=== PATIENT | male | born 1950 | race Caucasian/White ===

== ENCOUNTER 2019-03-10 22:16 | Inpatient (IN) ==
[2019-03-11] MEDS ORDERED: ONDANSETRON 4 MG/2 ML VIAL IV PRN (01:26)
[2019-03-11] MEDS ORDERED: cefTRIAXone 1,000 MG in SYRINGE 1 EACH IV SCH (02:30)
[2019-03-11] MEDS ORDERED: KETOROLAC 30 MG/1 ML VIAL IM ONE (02:30)
[2019-03-11 02:38] LABS: Basophils % 0.3 % (0.0-0.8); Hematocrit 41.5 VOL% (42.0-52.0); Hemoglobin 13.6 GM/DL (14.0-18.0); Immature Granulocytes % 0.7 %; Immature Granulocytes Absolute 0.08 #; Lymphocytes % 8.7 % (21.2-54.2); Mean Corpuscular HGB Conc 32.8 GM/DL (32-36); Mean Corpuscular Volume 87.2 FL (87-102); Mean Platelet Volume 12.3 FL (9.6-12.0); Monocytes % 6.8 % (1.7-12.7); Neutrophils % 83.5 % (38.7-73.9); Platelet Count 128 T/CUMM (130-400); Red Blood Count 4.76 MC/CUMM (3.8-5.5); Red Cell Distribution Width 13.7 % (9.3-17.3)
[2019-03-11 02:55] LABS: Albumin 3.2 G/DL (3.4-5.0); Bilirubin,Total 2.3 MG/DL (0.2-1.0); Calcium 8.2 MG/DL (8.5-10.1); Osmolality,Calculated 283.3 MOS/KG (273-304); Total Protein 6.9 G/DL (6.4-8.3)
[2019-03-11] MEDS ORDERED: GENTAMICIN INJ 80 MG in PREMIX 1 EACH IV ONE (03:00)
[2019-03-11] MEDS: ACETAMINOPHEN 325 MG TABLET PO PRN ×2 (03:15→08:15)
[2019-03-11] MEDS: SODIUM CHLORIDE 0.9% 1,000 ML IV SCH ×3 (03:17→17:43)
[2019-03-11] MEDS: MORPHINE 4 MG/1 ML VIAL IV PRN ×3 (03:45→17:41)
[2019-03-11 05:27] LABS: Apearance,Urine Slightly Hazy (Clear); Bilirubin,Urine Negative (Negative); Blood, Urine Large mg/dL (Negative); Glucose,Urine (UA) Negative (Negative); Ketones,Urine 5 mg/dL (Negative); Mucus,Urine Occasional /LPF (Occasional); Nitrite,Urine Negative (Negative); Protein,Urine 100 MG/DL; RBC,Urine 762 /HPF (0-4); Squamous Epithelial Cell,Urine Occasional /HPF (0-10); Urine Color Yellow (Yellow); Urine Specific Gravity 1.014 (1.001-1.035); Urine Urobilinogen < 2.0 EU/DL (0.2-1.0); WBC,Urine 24 /HPF (0-6)
[2019-03-11] MEDS ORDERED: cefTRIAXone 1,000 MG in SYRINGE 1 EACH IV ONE (06:15)
[2019-03-11] MEDS: ALBUTEROL/IPRATROPIUM 3 ML NEB RESP TX SCH ×3 (07:11→19:49)
[2019-03-11] MEDS: CEFEPIME 1,000 MG in SODIUM CHLORIDE 0.9% 100 ML IV SCH ×2 (09:26→17:42)
[2019-03-11] MEDS: KETOROLAC 15 MG/1 ML VIAL IV PRN ×2 (12:10→18:42)
[2019-03-11] MEDS: ACETAMINOPHEN 325 MG TABLET PO SCH ×3 (12:11→22:52)
[2019-03-12] MEDS: ALBUTEROL/IPRATROPIUM 3 ML NEB RESP TX SCH ×4 (00:11→19:40)
[2019-03-12] MEDS: KETOROLAC 15 MG/1 ML VIAL IV PRN ×3 (01:25→15:45)
[2019-03-12] MEDS: SODIUM CHLORIDE 0.9% 1,000 ML IV SCH ×2 (02:31→19:27)
[2019-03-12] MEDS: CEFEPIME 1,000 MG in SODIUM CHLORIDE 0.9% 100 ML IV SCH ×2 (02:31→09:44)
[2019-03-12] MEDS: MORPHINE 4 MG/1 ML VIAL IV PRN (06:47)
[2019-03-12] MEDS: ACETAMINOPHEN 325 MG TABLET PO SCH ×4 (07:10→22:32)
[2019-03-12 08:09] LABS: Basophils % 0.4 % (0.0-0.8); Eosinophils % 0.4 % (0.00-10.9); Hematocrit 39.7 VOL% (42.0-52.0); Hemoglobin 13.2 GM/DL (14.0-18.0); Immature Granulocytes % 0.9 %; Immature Granulocytes Absolute 0.06 #; Lymphocytes # 0.8 10*3/uL (1.4-4.0); Lymphocytes % 11.3 % (21.2-54.2); Mean Corpuscular HGB Conc 33.2 GM/DL (32-36); Mean Corpuscular Volume 86.7 FL (87-102); Mean Platelet Volume 12.5 FL (9.6-12.0); Monocytes % 9.5 % (1.7-12.7); Neutrophils % 77.5 % (38.7-73.9); Red Blood Count 4.58 MC/CUMM (3.8-5.5); Red Cell Distribution Width 13.9 % (9.3-17.3); White Blood Count 6.8 T/CUMM (4-12)
[2019-03-12 08:15] LABS: Platelet Count 95 T/CUMM (130-400)
[2019-03-12 08:27] LABS: Calcium 8.2 MG/DL (8.5-10.1); Osmolality,Calculated 288.1 MOS/KG (273-304)
[2019-03-12 08:39] LABS: Band Neutrophils 1 % (0-10); Hypochromasia Slight; Lymphocytes 12 % (20-55); Ovalocytes Slight; Platelet Estimate Decreased; Segmented Neutrophils 78 % (50-85); Total Cells Counted 100
[2019-03-12] MEDS ORDERED: cefTRIAXone 2,000 MG in SYRINGE 1 EACH IV SCH (09:00)
[2019-03-12] MEDS ORDERED: MAGNESIUM SULF RIDER 2 GM in PREMIX 1 EACH IV ONE (09:00)
[2019-03-12] MEDS ORDERED: POTASSIUM CHLORIDE 20 MEQ TABLET PO ONE (09:00)
[2019-03-12] MEDS: MEROPENEM 500 MG in SODIUM CHLORIDE 0.9% 100 ML IV SCH ×2 (12:02→19:20)
[2019-03-12] MEDS: IBUPROFEN 800 MG TABLET PO PRN (20:54)
[2019-03-12] MEDS: NICOTINE 21 MG/24 HR PATCH TRANSDERM PRN (20:54)
[2019-03-13] MEDS: MEROPENEM 500 MG in SODIUM CHLORIDE 0.9% 100 ML IV SCH ×2 (03:30→10:15)
[2019-03-13] MEDS: ACETAMINOPHEN 325 MG TABLET PO SCH ×4 (04:56→23:55)
[2019-03-13] MEDS: ALBUTEROL/IPRATROPIUM 3 ML NEB RESP TX SCH ×7 (05:20→23:26)
[2019-03-13] MEDS: ATORVASTATIN 10 MG TABLET PO SCH (08:40)
[2019-03-13] MEDS: hydroCHLOROthiazide 25 MG TABLET PO SCH (08:41)
[2019-03-13] MEDS: ISOSORBIDE MONONITRATE 30 MG TABLET PO SCH (08:41)
[2019-03-13] MEDS: amLODIPine 10 MG TABLET PO SCH (08:41)
[2019-03-13] MEDS: SODIUM CHLORIDE 0.9% 1,000 ML IV SCH (09:20)
[2019-03-13] MEDS: IBUPROFEN 800 MG TABLET PO PRN (16:09)
[2019-03-13] MEDS: MEROPENEM 1,000 MG in SODIUM CHLORIDE 0.9% 100 ML IV SCH (20:16)
[2019-03-13] MEDS: NICOTINE 21 MG/24 HR PATCH TRANSDERM PRN (20:25)
[2019-03-14] MEDS: ALBUTEROL/IPRATROPIUM 3 ML NEB RESP TX SCH ×6 (02:17→22:40)
[2019-03-14] MEDS: MEROPENEM 1,000 MG in SODIUM CHLORIDE 0.9% 100 ML IV SCH ×3 (04:11→20:36)
[2019-03-14 06:09] LABS: Basophils % 0.3 % (0.0-0.8); Eosinophils # 0.2 10*3/uL (0.0-0.87); Eosinophils % 2.1 % (0.00-10.9); Hematocrit 36.7 VOL% (42.0-52.0); Hemoglobin 12.2 GM/DL (14.0-18.0); Immature Granulocytes Absolute 0.09 #; Lymphocytes # 0.8 10*3/uL (1.4-4.0); Lymphocytes % 9.7 % (21.2-54.2); Mean Corpuscular HGB Conc 33.2 GM/DL (32-36); Mean Corpuscular Volume 85.5 FL (87-102); Mean Platelet Volume 12.1 FL (9.6-12.0); Neutrophils % 77.9 % (38.7-73.9); Platelet Count 105 T/CUMM (130-400); Red Blood Count 4.29 MC/CUMM (3.8-5.5); Red Cell Distribution Width 13.9 % (9.3-17.3); White Blood Count 8.6 T/CUMM (4-12)
[2019-03-14] MEDS: ACETAMINOPHEN 325 MG TABLET PO SCH ×3 (06:14→17:15)
[2019-03-14 06:45] LABS: Albumin 2.4 G/DL (3.4-5.0); Bilirubin,Total 1.4 MG/DL (0.2-1.0); Calcium 8.4 MG/DL (8.5-10.1); Osmolality,Calculated 287.8 MOS/KG (273-304); Total Protein 6.4 G/DL (6.4-8.3)
[2019-03-14] MEDS: POTASSIUM CHLORIDE 20 MEQ TABLET PO PRN ×4 (07:27→17:16)
[2019-03-14] MEDS: ISOSORBIDE MONONITRATE 30 MG TABLET PO SCH (08:48)
[2019-03-14] MEDS: amLODIPine 10 MG TABLET PO SCH (08:48)
[2019-03-14] MEDS: hydroCHLOROthiazide 25 MG TABLET PO SCH (08:48)
[2019-03-14] MEDS: ATORVASTATIN 10 MG TABLET PO SCH (08:48)
[2019-03-14] MEDS: CLOPIDOGREL 75 MG TABLET PO SCH (10:41)
[2019-03-14] MEDS: PANTOPRAZOLE 40 MG TABLET PO SCH (17:16)
[2019-03-15] MEDS: ACETAMINOPHEN 325 MG TABLET PO SCH ×2 (00:16→06:10)
[2019-03-15] MEDS: ALBUTEROL/IPRATROPIUM 3 ML NEB RESP TX SCH ×6 (02:33→23:20)
[2019-03-15] MEDS: MEROPENEM 1,000 MG in SODIUM CHLORIDE 0.9% 100 ML IV SCH (03:24)
[2019-03-15 07:05] LABS: Basophils # 0.1 10*3/uL (0.0-0.2); Basophils % 0.5 % (0.0-0.8); Eosinophils # 0.3 10*3/uL (0.0-0.87); Eosinophils % 2.9 % (0.00-10.9); Hemoglobin 12.6 GM/DL (14.0-18.0); Immature Granulocytes % 1.2 %; Immature Granulocytes Absolute 0.11 #; Lymphocytes # 1.5 10*3/uL (1.4-4.0); Lymphocytes % 15.9 % (21.2-54.2); Mean Corpuscular HGB Conc 32.3 GM/DL (32-36); Mean Corpuscular Volume 85.9 FL (87-102); Mean Platelet Volume 12.6 FL (9.6-12.0); Neutrophils % 71.5 % (38.7-73.9); Platelet Count 154 T/CUMM (130-400); Red Blood Count 4.54 MC/CUMM (3.8-5.5); Red Cell Distribution Width 13.9 % (9.3-17.3); White Blood Count 9.3 T/CUMM (4-12)
[2019-03-15] MEDS ORDERED: ACETAMINOPHEN 325 MG TABLET PO PRN (07:29)
[2019-03-15 07:35] LABS: Albumin 2.6 G/DL (3.4-5.0); Bilirubin,Total 1.2 MG/DL (0.2-1.0); Osmolality,Calculated 282.3 MOS/KG (273-304)
[2019-03-15] MEDS: amLODIPine 10 MG TABLET PO SCH (09:24)
[2019-03-15] MEDS: PANTOPRAZOLE 40 MG TABLET PO SCH (09:24)
[2019-03-15] MEDS: TAMSULOSIN 0.4 MG CAPSULE PO SCH ×2 (09:24→21:38)
[2019-03-15] MEDS: ATORVASTATIN 10 MG TABLET PO SCH (09:24)
[2019-03-15] MEDS: hydroCHLOROthiazide 25 MG TABLET PO SCH (09:24)
[2019-03-15] MEDS: ISOSORBIDE MONONITRATE 30 MG TABLET PO SCH (09:24)
[2019-03-15] MEDS: CLOPIDOGREL 75 MG TABLET PO SCH (09:24)
[2019-03-15] MEDS: POTASSIUM CHLORIDE 20 MEQ TABLET PO PRN ×2 (09:29→12:31)
[2019-03-15] MEDS: ERTAPENEM 1,000 MG in SODIUM CHLORIDE 0.9% 100 ML IV SCH (12:29)
[2019-03-16] MEDS: ALBUTEROL/IPRATROPIUM 3 ML NEB RESP TX SCH ×2 (02:51→07:23)
[2019-03-16 05:14] LABS: Basophils # 0.1 10*3/uL (0.0-0.2); Basophils % 0.5 % (0.0-0.8); Eosinophils # 0.4 10*3/uL (0.0-0.87); Eosinophils % 3.2 % (0.00-10.9); Hematocrit 39.7 VOL% (42.0-52.0); Hemoglobin 13.4 GM/DL (14.0-18.0); Immature Granulocytes % 1.2 %; Immature Granulocytes Absolute 0.13 #; Lymphocytes # 1.5 10*3/uL (1.4-4.0); Lymphocytes % 13.6 % (21.2-54.2); Mean Corpuscular HGB Conc 33.8 GM/DL (32-36); Mean Corpuscular Volume 85.7 FL (87-102); Mean Platelet Volume 12.2 FL (9.6-12.0); Monocytes % 6.8 % (1.7-12.7); Neutrophils % 74.7 % (38.7-73.9); Platelet Count 206 T/CUMM (130-400); Red Blood Count 4.63 MC/CUMM (3.8-5.5); Red Cell Distribution Width 13.9 % (9.3-17.3)
[2019-03-16 05:51] LABS: Albumin 2.8 G/DL (3.4-5.0); Bilirubin,Total 1.2 MG/DL (0.2-1.0); Calcium 8.9 MG/DL (8.5-10.1); Osmolality,Calculated 281.5 MOS/KG (273-304)
[2019-03-16] MEDS: PANTOPRAZOLE 40 MG TABLET PO SCH (08:40)
[2019-03-16] MEDS: CLOPIDOGREL 75 MG TABLET PO SCH (08:40)
[2019-03-16] MEDS: amLODIPine 10 MG TABLET PO SCH (08:40)
[2019-03-16] MEDS: hydroCHLOROthiazide 25 MG TABLET PO SCH (08:40)
[2019-03-16] MEDS: ATORVASTATIN 10 MG TABLET PO SCH (08:40)
[2019-03-16] MEDS: TAMSULOSIN 0.4 MG CAPSULE PO SCH ×2 (08:40→21:34)
[2019-03-16] MEDS: ISOSORBIDE MONONITRATE 30 MG TABLET PO SCH (08:40)
[2019-03-16] MEDS ORDERED: ALBUTEROL/IPRATROPIUM 3 ML NEB RESP TX PRN (09:37)
[2019-03-16] MEDS: ERTAPENEM 1,000 MG in SODIUM CHLORIDE 0.9% 100 ML IV SCH (14:19)
[2019-03-16] MEDS: IBUPROFEN 800 MG TABLET PO PRN (14:19)
[2019-03-17] MEDS: ISOSORBIDE MONONITRATE 30 MG TABLET PO SCH (08:49)
[2019-03-17] MEDS: hydroCHLOROthiazide 25 MG TABLET PO SCH (08:49)
[2019-03-17] MEDS: CLOPIDOGREL 75 MG TABLET PO SCH (08:49)
[2019-03-17] MEDS: amLODIPine 10 MG TABLET PO SCH (08:49)
[2019-03-17] MEDS: ATORVASTATIN 10 MG TABLET PO SCH (08:49)
[2019-03-17] MEDS: PANTOPRAZOLE 40 MG TABLET PO SCH (08:49)
[2019-03-17] MEDS: TAMSULOSIN 0.4 MG CAPSULE PO SCH (08:49)
[2019-03-17] MEDS: ERTAPENEM 1,000 MG in SODIUM CHLORIDE 0.9% 100 ML IV SCH (10:21)
[2019-03-17 11:57] VITALS: BP 126/79
== END 2019-03-17 12:30 | disposition home or self-care (01) | DRG 872 ==
LOC: N.5E → SUATTDRO 03-11 12:08 → UNDODISIN 03-17 12:00
PROVIDERS: ADMIT Internal Medicine; ATTEND Internal Medicine

== ENCOUNTER 2019-08-27 20:25 | Observation (INO) ==
[2019-08-27 21:36] LABS: Basophils # 0.1 10*3/uL (0.0-0.2); Basophils % 0.7 % (0.0-0.8); Eosinophils # 0.3 10*3/uL (0.0-0.87); Eosinophils % 2.5 % (0.00-10.9); Hematocrit 45.5 VOL% (42.0-52.0); Hemoglobin 15.6 GM/DL (14.0-18.0); Immature Granulocytes % 0.7 %; Immature Granulocytes Absolute 0.08 #; Lymphocytes # 2.1 10*3/uL (1.4-4.0); Lymphocytes % 18.8 % (21.2-54.2); Mean Corpuscular HGB Conc 34.3 GM/DL (32-36); Mean Platelet Volume 11.6 FL (9.6-12.0); Monocytes % 6.3 % (1.7-12.7); Platelet Count 218 T/CUMM (130-400); Red Blood Count 5.29 MC/CUMM (3.8-5.5); Red Cell Distribution Width 13.5 % (9.3-17.3); White Blood Count 10.9 T/CUMM (4-12)
[2019-08-27 21:42] LABS: INR 0.9; PT Patient Result 9.9 SECS (9.6-12.2)
[2019-08-27 21:49] LABS: Albumin 3.8 G/DL (3.4-5.0); Bilirubin,Total 0.6 MG/DL (0.2-1.0); Calcium 8.7 MG/DL (8.5-10.1); Osmolality,Calculated 283.5 MOS/KG (273-304); Total Protein 7.2 G/DL (6.4-8.3)
[2019-08-27] MEDS ORDERED: MORPHINE 4 MG/1 ML VIAL IV PRN (23:45)
[2019-08-27] MEDS ORDERED: ONDANSETRON 4 MG/2 ML VIAL IV PRN (23:45)
[2019-08-27] MEDS ORDERED: NICOTINE 21 MG/24 HR PATCH TRANSDERM PRN (23:45)
[2019-08-27] MEDS ORDERED: PROMETHAZINE 25 MG TABLET PO PRN (23:45)
[2019-08-27] MEDS ORDERED: ACETAMINOPHEN 325 MG TABLET PO PRN (23:45)
[2019-08-27] MEDS ORDERED: ZALEPLON 5 MG CAPSULE PO PRN (23:45)
[2019-08-27] MEDS ORDERED: guaiFENesin/DM ER 600-30 MG TABLET PO PRN (23:45)
[2019-08-28 01:25] LABS: Basophils # 0.1 10*3/uL (0.0-0.2); Basophils % 0.9 % (0.0-0.8); Eosinophils # 0.3 10*3/uL (0.0-0.87); Eosinophils % 2.7 % (0.00-10.9); Hematocrit 42.9 VOL% (42.0-52.0); Hemoglobin 14.7 GM/DL (14.0-18.0); Immature Granulocytes % 0.5 %; Immature Granulocytes Absolute 0.05 #; Lymphocytes # 2.3 10*3/uL (1.4-4.0); Lymphocytes % 23.8 % (21.2-54.2); Mean Corpuscular HGB Conc 34.3 GM/DL (32-36); Mean Corpuscular Volume 85.6 FL (87-102); Mean Platelet Volume 11.4 FL (9.6-12.0); Monocytes % 7.6 % (1.7-12.7); Neutrophils % 64.5 % (38.7-73.9); Platelet Count 200 T/CUMM (130-400); Red Blood Count 5.01 MC/CUMM (3.8-5.5); Red Cell Distribution Width 13.4 % (9.3-17.3); White Blood Count 9.8 T/CUMM (4-12)
[2019-08-28] MEDS ORDERED: hydrALAZINE 20 MG/1 ML VIAL IV PRN (05:14)
[2019-08-28] MEDS ORDERED: NITROGLYCERIN SL 0.4 MG TABLET SL PRN (05:15)
[2019-08-28 06:06] LABS: Albumin 3.4 G/DL (3.4-5.0); Bilirubin,Total 1.2 MG/DL (0.2-1.0); Calcium 8.8 MG/DL (8.5-10.1); Osmolality,Calculated 287.3 MOS/KG (273-304); Total Protein 6.6 G/DL (6.4-8.3)
[2019-08-28] MEDS ORDERED: CITALOPRAM 20 MG TABLET PO SCH (09:00)
[2019-08-28] MEDS ORDERED: CLOPIDOGREL 75 MG TABLET PO SCH (09:00)
[2019-08-28] MEDS ORDERED: ENOXAPARIN 40 MG/0.4 ML SYRINGE SUBCUT SCH (09:00)
[2019-08-28] MEDS ORDERED: TAMSULOSIN 0.4 MG CAPSULE PO SCH (09:00)
[2019-08-28] MEDS ORDERED: ISOSORBIDE MONONITRATE 30 MG TABLET PO SCH (09:00)
[2019-08-28] MEDS ORDERED: hydroCHLOROthiazide 25 MG TABLET PO SCH (09:00)
[2019-08-28] MEDS ORDERED: amLODIPine 10 MG TABLET PO SCH (09:00)
[2019-08-28] MEDS ORDERED: ASPIRIN CHEW 81 MG TABLET PO SCH (09:00)
[2019-08-28] MEDS ORDERED: clonazePAM 0.5 MG TABLET PO SCH (09:00)
[2019-08-28] MEDS ORDERED: PANTOPRAZOLE 40 MG TABLET PO SCH (09:00)
[2019-08-28] MEDS ORDERED: DEXTROSE 50% 25 GM/50 ML VIAL IV PRN (11:52)
[2019-08-28] MEDS ORDERED: GLUCAGON 1 MG VIAL IM PRN (11:52)
[2019-08-28 15:50] VITALS: BP 111/70
[2019-08-28] MEDS ORDERED: INSULIN REGULAR 100 UNIT/ML SUBCUT SCH (16:30)
[2019-08-28] MEDS ORDERED: ATORVASTATIN 10 MG TABLET PO SCH (21:00)
== END 2019-08-28 18:16 | disposition home or self-care (01) ==
LOC: N.ED 20:25 → N.EDINP 20:25 → SUATTDRO 23:45 → N.4E 08-28 01:21
PROVIDERS: ADMIT Internal Medicine Geriatric Medicine; ATTEND Internal Medicine Cardiovascular Disease

== ENCOUNTER 2021-06-23 15:27 | Inpatient (IN) ==
[2021-06-23 16:57] LABS: Bilirubin,Urine Small mg/dL (Negative); Blood, Urine Negative (Negative); Glucose,Urine (UA) >=500 mg/dL (Negative); Hyaline Casts,Urine 8 /LPF (0-3); Ketones,Urine 5 mg/dL (Negative); Mucus,Urine Occasional /LPF (Occasional); Nitrite,Urine Negative (Negative); Protein,Urine 100 MG/DL; RBC,Urine 6 /HPF (0-4); Squamous Epithelial Cell,Urine Occasional /HPF (0-10); Urine Appearance CLEAR (Clear); Urine Color Amber (Yellow); Urine Specific Gravity 1.022 (1.001-1.035)
[2021-06-23] MEDS ORDERED: PIPERACILLIN/TAZOBACTAM 3,375 MG in SODIUM CHLORIDE 0.9% 100 ML IV STA (17:43)
[2021-06-23 17:55] LABS: Basophils % 0.3 % (0.0-0.8); Eosinophils % 0.1 % (0.00-10.9); Hemoglobin 14.9 GM/DL (14.0-18.0); Immature Granulocytes % 0.6 %; Immature Granulocytes Absolute 0.09 #; Lymphocytes # 0.9 10*3/uL (1.4-4.0); Lymphocytes % 5.4 % (21.2-54.2); Mean Corpuscular HGB Conc 33.9 GM/DL (32-36); Mean Corpuscular Volume 84.6 FL (87-102); Mean Platelet Volume 12.5 FL (9.6-12.0); Neutrophils % 88.6 % (38.7-73.9); Platelet Count 174 T/CUMM (130-400); Red Cell Distribution Width 12.8 % (9.3-17.3); White Blood Count 15.6 T/CUMM (4-12)
[2021-06-23 18:06] LABS: Albumin 3.6 G/DL (3.4-5.0); Bilirubin,Total 7.4 MG/DL (0.20-1.00); Calcium 8.7 MG/DL (8.5-10.1); Osmolality,Calculated 285.1 MOS/KG (273-304); Potassium 4.2 MMOL/L (3.5-5.1); Total Protein 7.1 G/DL (6.4-8.2)
[2021-06-23] MEDS ORDERED: DEXTROSE 50% 25 GM/50 ML SYRINGE IV PRN (19:17)
[2021-06-23] MEDS ORDERED: ONDANSETRON 4 MG/2 ML VIAL IV PRN (19:17)
[2021-06-23] MEDS ORDERED: GLUCAGON 1 MG VIAL IM PRN (19:17)
[2021-06-23] MEDS: METOPROLOL TARTRATE 25 MG TABLET PO SCH (21:18)
[2021-06-23] MEDS: ENOXAPARIN 40 MG/0.4 ML SYRINGE SUBCUT SCH (21:18)
[2021-06-23] MEDS: LACTATED RINGERS 1,000 ML IV SCH (21:37)
[2021-06-23] MEDS: cefTRIAXone 2,000 MG in SODIUM CHLORIDE 0.9% 100 ML IV SCH (22:02)
[2021-06-24] MEDS: ALBUTEROL/IPRATROPIUM 3 ML NEB RESP TX SCH ×5 (07:30→23:50)
[2021-06-24] MEDS ORDERED: INFLUENZA VIRUS VACCINE 0.5 ML SYRINGE IM ONE (09:00)
[2021-06-24] MEDS: LOSARTAN 50 MG TABLET PO SCH (13:22)
[2021-06-24] MEDS: clonazePAM 0.5 MG TABLET PO SCH (13:22)
[2021-06-24] MEDS: ISOSORBIDE MONONITRATE 30 MG TABLET PO SCH (13:22)
[2021-06-24] MEDS: LACTATED RINGERS 1,000 ML IV SCH ×3 (13:22→22:08)
[2021-06-24] MEDS: amLODIPine 10 MG TABLET PO SCH (13:23)
[2021-06-24] MEDS: PANTOPRAZOLE 40 MG VIAL IV SCH (13:23)
[2021-06-24] MEDS: METOPROLOL TARTRATE 25 MG TABLET PO SCH ×2 (13:23→22:08)
[2021-06-24 13:42] LABS: Albumin 2.9 G/DL (3.4-5.0); Bilirubin,Total 8.7 MG/DL (0.20-1.00); Calcium 8.7 MG/DL (8.5-10.1); Total Protein 6.7 G/DL (6.4-8.2)
[2021-06-24 13:43] LABS: Osmolality,Calculated 280.7 MOS/KG (273-304); Potassium 3.3 MMOL/L (3.5-5.1)
[2021-06-24 16:08] LABS: Basophils # 0.1 10*3/uL (0.0-0.2); Basophils % 0.4 % (0.0-0.8); Eosinophils # 0.2 10*3/uL (0.0-0.87); Eosinophils % 1.8 % (0.00-10.9); Hematocrit 40.3 VOL% (42.0-52.0); Hemoglobin 13.5 GM/DL (14.0-18.0); Immature Granulocytes % 0.6 %; Immature Granulocytes Absolute 0.07 #; Lymphocytes # 1.1 10*3/uL (1.4-4.0); Lymphocytes % 9.1 % (21.2-54.2); Mean Corpuscular HGB Conc 33.5 GM/DL (32-36); Mean Corpuscular Volume 86.7 FL (87-102); Mean Platelet Volume 12.9 FL (9.6-12.0); Neutrophils % 80.1 % (38.7-73.9); Platelet Count 136 T/CUMM (130-400); Red Blood Count 4.65 MC/CUMM (3.8-5.5); Red Cell Distribution Width 13.1 % (9.3-17.3)
[2021-06-24] MEDS ORDERED: ALBUTEROL 1.25 MG/3 ML NEB RESP TX PRN (16:33)
[2021-06-24] MEDS: POTASSIUM CHLORIDE 20 MEQ TABLET PO PRN ×2 (17:20→22:08)
[2021-06-24] MEDS: cefTRIAXone 2,000 MG in SODIUM CHLORIDE 0.9% 100 ML IV SCH (22:07)
[2021-06-24] MEDS: ENOXAPARIN 40 MG/0.4 ML SYRINGE SUBCUT SCH (22:09)
[2021-06-25] MEDS: POTASSIUM CHLORIDE 20 MEQ TABLET PO PRN (00:15)
[2021-06-25] MEDS: ALBUTEROL/IPRATROPIUM 3 ML NEB RESP TX SCH ×8 (03:40→23:35)
[2021-06-25 06:33] LABS: Albumin 2.6 G/DL (3.4-5.0); Bilirubin,Direct 1.67 MG/DL (0.0-0.20); Bilirubin,Total 3.1 MG/DL (0.20-1.00); Calcium 8.5 MG/DL (8.5-10.1); Osmolality,Calculated 284.5 MOS/KG (273-304); Potassium 3.7 MMOL/L (3.5-5.1); Total Protein 6.5 G/DL (6.4-8.2)
[2021-06-25] MEDS ORDERED: LACTATED RINGERS 1,000 ML IV ONE (07:38)
[2021-06-25] MEDS: PIPERACILLIN/TAZOBACTAM 3,375 MG in SODIUM CHLORIDE 0.9% 100 ML IV SCH ×2 (09:42→18:16)
[2021-06-25] MEDS: PANTOPRAZOLE 40 MG VIAL IV SCH (09:42)
[2021-06-25] MEDS: clonazePAM 0.5 MG TABLET PO SCH (09:43)
[2021-06-25] MEDS: METOPROLOL TARTRATE 25 MG TABLET PO SCH ×2 (09:44→20:41)
[2021-06-25] MEDS: ISOSORBIDE MONONITRATE 30 MG TABLET PO SCH (09:44)
[2021-06-25] MEDS: amLODIPine 10 MG TABLET PO SCH (09:45)
[2021-06-25] MEDS: LOSARTAN 50 MG TABLET PO SCH (09:45)
[2021-06-25] MEDS: LACTATED RINGERS 1,000 ML IV SCH ×2 (18:16→23:52)
[2021-06-25] MEDS: ENOXAPARIN 40 MG/0.4 ML SYRINGE SUBCUT SCH (23:52)
[2021-06-26] MEDS: PIPERACILLIN/TAZOBACTAM 3,375 MG in SODIUM CHLORIDE 0.9% 100 ML IV SCH ×3 (02:43→21:58)
[2021-06-26] MEDS: ALBUTEROL/IPRATROPIUM 3 ML NEB RESP TX SCH ×5 (04:00→20:20)
[2021-06-26 05:11] LABS: Basophils # 0.1 10*3/uL (0.0-0.2); Basophils % 0.8 % (0.0-0.8); Eosinophils # 0.2 10*3/uL (0.0-0.87); Eosinophils % 2.9 % (0.00-10.9); Hematocrit 36.3 VOL% (42.0-52.0); Immature Granulocytes % 0.6 %; Immature Granulocytes Absolute 0.04 #; Lymphocytes # 1.4 10*3/uL (1.4-4.0); Lymphocytes % 21.6 % (21.2-54.2); Mean Corpuscular HGB Conc 33.1 GM/DL (32-36); Mean Corpuscular Volume 86.2 FL (87-102); Mean Platelet Volume 12.1 FL (9.6-12.0); Monocytes % 9.6 % (1.7-12.7); Neutrophils % 64.5 % (38.7-73.9); Platelet Count 125 T/CUMM (130-400); Red Blood Count 4.21 MC/CUMM (3.8-5.5); White Blood Count 6.6 T/CUMM (4-12)
[2021-06-26 05:39] LABS: Albumin 2.4 G/DL (3.4-5.0); Calcium 8.2 MG/DL (8.5-10.1); Osmolality,Calculated 287.3 MOS/KG (273-304); Potassium 3.9 MMOL/L (3.5-5.1); Total Protein 6.4 G/DL (6.4-8.2)
[2021-06-26] MEDS: ISOSORBIDE MONONITRATE 30 MG TABLET PO SCH (09:01)
[2021-06-26] MEDS: LOSARTAN 50 MG TABLET PO SCH (09:02)
[2021-06-26] MEDS: amLODIPine 10 MG TABLET PO SCH (09:02)
[2021-06-26] MEDS: clonazePAM 0.5 MG TABLET PO SCH (09:02)
[2021-06-26] MEDS: METOPROLOL TARTRATE 25 MG TABLET PO SCH ×2 (09:02→21:54)
[2021-06-26] MEDS: PANTOPRAZOLE 40 MG VIAL IV SCH (09:03)
[2021-06-26] MEDS: LACTATED RINGERS 1,000 ML IV SCH ×3 (11:29→15:22)
[2021-06-26] MEDS: MORPHINE 2 MG/1 ML SYRINGE IV PRN (21:57)
[2021-06-26] MEDS: diphenhydrAMINE 50 MG/1 ML VIAL IV PRN (22:22)
[2021-06-27] MEDS: ALBUTEROL/IPRATROPIUM 3 ML NEB RESP TX SCH ×7 (00:18→23:55)
[2021-06-27] MEDS: LACTATED RINGERS 1,000 ML IV SCH ×3 (00:33→14:36)
[2021-06-27] MEDS: ENOXAPARIN 40 MG/0.4 ML SYRINGE SUBCUT SCH ×2 (00:33→22:56)
[2021-06-27 05:32] LABS: Basophils # 0.1 10*3/uL (0.0-0.2); Eosinophils # 0.3 10*3/uL (0.0-0.87); Eosinophils % 4.4 % (0.00-10.9); Hematocrit 37.3 VOL% (42.0-52.0); Hemoglobin 11.9 GM/DL (14.0-18.0); Immature Granulocytes Absolute 0.06 #; Lymphocytes # 1.6 10*3/uL (1.4-4.0); Mean Corpuscular HGB Conc 31.9 GM/DL (32-36); Mean Corpuscular Volume 88.4 FL (87-102); Mean Platelet Volume 12.2 FL (9.6-12.0); Monocytes % 9.6 % (1.7-12.7); Platelet Count 150 T/CUMM (130-400); Red Blood Count 4.22 MC/CUMM (3.8-5.5); White Blood Count 6.1 T/CUMM (4-12)
[2021-06-27 05:52] LABS: Calcium 8.6 MG/DL (8.5-10.1); Osmolality,Calculated 283.4 MOS/KG (273-304); Potassium 4.5 MMOL/L (3.5-5.1)
[2021-06-27 05:55] LABS: Risk Ratio 5.65; VLDL Cholesterol 32.2 MG/DL
[2021-06-27 05:56] LABS: Albumin 2.6 G/DL (3.4-5.0); Bilirubin,Direct 0.49 MG/DL (0.0-0.20); Bilirubin,Indirect 1.7 MG/DL (0.0-1.0); Bilirubin,Total 2.2 MG/DL (0.20-1.00); Total Protein 6.6 G/DL (6.4-8.2)
[2021-06-27] MEDS: PIPERACILLIN/TAZOBACTAM 3,375 MG in SODIUM CHLORIDE 0.9% 100 ML IV SCH ×3 (06:28→22:30)
[2021-06-27] MEDS ORDERED: INDOCYANINE GREEN 25 MG VIAL IV ONE (07:00)
[2021-06-27] MEDS ORDERED: LACTATED RINGERS 1,000 ML IV SCH (08:00)
[2021-06-27] MEDS ORDERED: ROCURONIUM 50 MG/5 ML VIAL IV ONE ×2 (08:32→10:14)
[2021-06-27] MEDS ORDERED: SEVOFLURANE 1 UNIT/15 MINUTE INH ONE ×4 (08:32→10:40)
[2021-06-27] MEDS ORDERED: propofoL 200 MG/20 ML VIAL IV ONE ×2 (08:32→09:37)
[2021-06-27] MEDS ORDERED: LIDOCAINE 2% 5 ML VIAL ONE (08:32)
[2021-06-27] MEDS ORDERED: fentaNYL 100 MCG/2 ML VIAL ONE (08:33)
[2021-06-27] MEDS ORDERED: BUPIVACAINE MPF 0.25% 30 ML VIAL ONE (08:42)
[2021-06-27] MEDS ORDERED: TISSUE ADHESIVE 1 EACH APPLICATOR TOP ONE (08:42)
[2021-06-27] MEDS ORDERED: LIDOCAINE 1%/EPI INJ 20 ML VIAL ONE (08:42)
[2021-06-27] MEDS ORDERED: DEXAMETHASONE 4 MG/1 ML VIAL ONE (09:20)
[2021-06-27] MEDS ORDERED: ONDANSETRON 4 MG/2 ML VIAL ONE (09:20)
[2021-06-27] MEDS ORDERED: ACETAMINOPHEN INJ 1,000 MG/100 ML VIAL IV ONE (10:19)
[2021-06-27] MEDS ORDERED: GLYCOPYRROLATE 0.4 MG/2 ML VIAL ONE (10:40)
[2021-06-27] MEDS ORDERED: ALBUTEROL/IPRATROPIUM 3 ML NEB RESP TX ONE (11:45)
[2021-06-27] MEDS: ISOSORBIDE MONONITRATE 30 MG TABLET PO SCH (13:14)
[2021-06-27] MEDS: LOSARTAN 50 MG TABLET PO SCH (13:14)
[2021-06-27] MEDS: amLODIPine 10 MG TABLET PO SCH (13:15)
[2021-06-27] MEDS: METOPROLOL TARTRATE 25 MG TABLET PO SCH ×2 (13:15→21:06)
[2021-06-27] MEDS: PANTOPRAZOLE 40 MG VIAL IV SCH (13:15)
[2021-06-27] MEDS: clonazePAM 0.5 MG TABLET PO SCH (13:15)
[2021-06-27] MEDS: MORPHINE 2 MG/1 ML SYRINGE IV PRN ×2 (16:12→23:34)
[2021-06-27] MEDS: diphenhydrAMINE 50 MG/1 ML VIAL IV PRN ×2 (16:12→23:37)
[2021-06-28] MEDS: ALBUTEROL/IPRATROPIUM 3 ML NEB RESP TX SCH ×4 (03:15→15:00)
[2021-06-28 05:43] LABS: Basophils # 0.1 10*3/uL (0.0-0.2); Basophils % 0.5 % (0.0-0.8); Eosinophils # 0.2 10*3/uL (0.0-0.87); Eosinophils % 1.4 % (0.00-10.9); Hematocrit 38.7 VOL% (42.0-52.0); Hemoglobin 12.7 GM/DL (14.0-18.0); Immature Granulocytes % 0.9 %; Lymphocytes % 19.1 % (21.2-54.2); Mean Corpuscular HGB Conc 32.8 GM/DL (32-36); Mean Corpuscular Volume 87.8 FL (87-102); Mean Platelet Volume 12.4 FL (9.6-12.0); Monocytes % 7.6 % (1.7-12.7); Neutrophils % 70.5 % (38.7-73.9); Platelet Count 172 T/CUMM (130-400); Red Blood Count 4.41 MC/CUMM (3.8-5.5); White Blood Count 10.5 T/CUMM (4-12)
[2021-06-28] MEDS: LACTATED RINGERS 1,000 ML IV SCH ×3 (05:52→10:03)
[2021-06-28 06:22] LABS: Albumin 2.7 G/DL (3.4-5.0); Bilirubin,Total 1.3 MG/DL (0.20-1.00); Calcium 8.3 MG/DL (8.5-10.1); Osmolality,Calculated 277.8 MOS/KG (273-304); Potassium 3.7 MMOL/L (3.5-5.1)
[2021-06-28] MEDS: PIPERACILLIN/TAZOBACTAM 3,375 MG in SODIUM CHLORIDE 0.9% 100 ML IV SCH (07:07)
[2021-06-28] MEDS: METOPROLOL TARTRATE 25 MG TABLET PO SCH (09:32)
[2021-06-28] MEDS: amLODIPine 10 MG TABLET PO SCH (09:32)
[2021-06-28] MEDS: LOSARTAN 50 MG TABLET PO SCH (09:32)
[2021-06-28] MEDS: clonazePAM 0.5 MG TABLET PO SCH (09:32)
[2021-06-28] MEDS: PANTOPRAZOLE 40 MG VIAL IV SCH (09:33)
[2021-06-28] MEDS: diphenhydrAMINE 50 MG/1 ML VIAL IV PRN (09:33)
[2021-06-28] MEDS: MORPHINE 2 MG/1 ML SYRINGE IV PRN (09:34)
[2021-06-28] MEDS: ISOSORBIDE MONONITRATE 30 MG TABLET PO SCH (09:35)
[2021-06-28 12:02] VITALS: BP 145/69
== END 2021-06-28 15:51 | disposition home or self-care (01) | DRG 418 ==
LOC: EDUNIT# → EDBD → N.ED 15:27 → SUATTDRO 19:17 → N.EDINP 19:17 → N.5E 21:32
PROVIDERS: ADMIT Internal Medicine; ATTEND Internal Medicine